=== PATIENT | male | born 1940 | race Caucasian/White ===

== ENCOUNTER → 2017-04-03 | Day surgery (SDC) | payer OTHER ==
[~2017-04-03] VITALS: Ht 160 cm; Wt 57.6 kg
[~2017-04-03] MED LIST: CEFAZOLIN 1000MG PREMIX 50 ML IV ONE; FENTANYL CITRATE/PF 50MCG/ML 2ML VIAL IV PRN; FENTANYL CITRATE/PF 50MCG/ML 2ML VIAL ONE; LACTATED RINGERS 1,000 ML IV SCH; LEVOFLOXACIN 500MG PREMIX 100 ML IV ONE; MIDAZOLAM HCL 2 MG/2 ML VIAL IV PRN; MIDAZOLAM HCL 5 MG/5 ML VIAL ONE; SIMETHICONE 40 MG/0.6 ML 30ML ONE; SODIUM CHLORIDE 0.9% 10ML VIAL ONE
== END | disposition home or self-care (01) ==
LOC: OR 11:12
PROVIDERS: ATTEND Internal Medicine Gastroenterology
DX: R13.12 Dysphagia, oropharyngeal phase (principal); E46 Unspecified protein-calorie malnutrition; Y84.2 Radiological procedure and radiotherapy as the cause of abnormal reaction of the patient, or of later complication, without mention of misadventure at the time of the procedure
CPT/HCPCS: 43246; A4216; J0690; J1956; J2250; J3010; J7120